=== PATIENT | female | born 1975 ===

== ENCOUNTER 2021-11-14 13:23 | Outpatient (REF) | payer OTHER, SELFPAY ==
--- NOTE | 2021-11-14 15:34 | MHC.AU.HAS ---
Hearing Aid Evaluation Date of Visit: 11/14/21 Historical Information: Description of Hearing: Right ear - Moderate sensorineural hearing loss at 250-2000 Hz and 5827-2242 Hz with a mild sensorineural hearing loss 4000 Hz. Speech understanding is 88% at 75 dB HL Left ear - Normal hearing thresholds 250-8000 Hz with 100% speech discrimination ability. Current personal amplification information, if applicable: NONE Summary: Michelle experienced a sudden right ear hearing loss and loss of vision in the right eye in August 2021. A meningioma was diagnosed and brain surgery performed 08/26/2021. She also has a history of Thyroid Carcinoma diagnosed and treated in January 2021. Due to the severity of the right ear hearing loss, medical clearance for a right hearing aid was provided by Dr. Wilberto Wesley. A rechargeable hearing aid is recommended due to Michelle's significant visual difficulties. Discussed appropriate style of hearing aids and Michelle would like to try a custom [id number] hearing aid for ease of use, particularly when face mask and glasses are worn. Hearing Aid Prescription: Based on the individual?s shared listening needs, communication environments, dexterity, desire for connectivity, and personal preferences, the following prescription for amplification has been made: Right ear: Manager Culture: [employer] Model: [id number] [id number] ITC-R Battery Size: Rechargeable Color: Black Buffer Nickel: 110/40 Left ear: NONE Plan of Care: Patient wishes to purchase hearing aid as prescribed Action Taken/Action Needed: Right [place] Impression Taken without complication Hearing Instrument Fitting to be scheduled when materials arrive Primary Diagnosis: H90.41 SNHL Unilateral Right Ear, W/Unrestricted Contralateral Hearing Signature:Provider: Maty [address], [facility]
== END 2021-11-14 13:24 | disposition home or self-care (01) ==
LOC: HO.HAP 13:23
PROVIDERS: Visit Provider Student in an Organized Health Care Education/Training Program
DX: Z46.1 Encounter for fitting and adjustment of hearing aid (principal); H90.41 Sensorineural hearing loss, unilateral, right ear, with unrestricted hearing on the contralateral side; H54.61 Unqualified visual loss, right eye, normal vision left eye; D32.9 Benign neoplasm of meninges, unspecified; Z98.890 Other specified postprocedural states
CPT/HCPCS: 92590; V5275

== ENCOUNTER 2021-12-13 12:45 | Outpatient (REF) | payer OTHER, SELFPAY | END 2021-12-13 12:46 | disposition home or self-care (01) | LOC: HO.HAP 12:45 | PROVIDERS: Visit Provider Otolaryngology | DX: Z46.1 Encounter for fitting and adjustment of hearing aid (principal); H90.41 Sensorineural hearing loss, unilateral, right ear, with unrestricted hearing on the contralateral side | CPT/HCPCS: V5011; V5020; V5241; V5255 ==

== ENCOUNTER 2021-12-26 14:42 | Outpatient (REF) | payer OTHER, SELFPAY | END 2021-12-26 14:43 | disposition home or self-care (01) | LOC: HO.HAP 14:42 | PROVIDERS: Visit Provider Student in an Organized Health Care Education/Training Program | DX: Z13.89 Encounter for screening for other disorder (principal) ==